=== PATIENT | male | born 1965 | race Caucasian/White ===

== ENCOUNTER 2021-12-04 14:56 | Outpatient (REF) | payer MEDICARE, MEDICAID, SELFPAY ==
--- NOTE | ~2021-12-04 | XR_ITS ---
EXAMINATION: XR HAND LEFT XR HAND RIGHT CLINICAL INFORMATION: 53-year-old male with other specified soft tissue disorders COMPARISON: Bone density scan of 07/09/2018 TECHNIQUE: Right hand, 3 views Left hand, 3 views FINDINGS: Bone density is diffusely decreased in this patient with history of osteoporosis. Bones have normal alignment in the left hand and wrist. No erosions, periostitis or focal soft tissue swelling. No abnormal soft tissue calcifications. There appears to be mild degenerative narrowing of articular cartilage space at distal interphalangeal joints. Findings in the right hand are similar to those observed on the left. Bones have normal alignment throughout the right hand and wrist. No erosions or periostitis. Mild articular cartilage space narrowing at multiple distal interphalangeal joints. No abnormal soft tissue calcifications within the right hand. XR/XR hand LT min 3V IMPRESSION: * Bone density appears to be diffusely decreased in this patient with history of osteoporosis. * No evidence of an inflammatory/erosive arthropathy in either hand or wrist. 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
--- NOTE | ~2021-12-04 | XR_ITS ---
EXAMINATION: XR HAND LEFT XR HAND RIGHT CLINICAL INFORMATION: 53-year-old male with other specified soft tissue disorders COMPARISON: Bone density scan of 07/09/2018 TECHNIQUE: Right hand, 3 views Left hand, 3 views FINDINGS: Bone density is diffusely decreased in this patient with history of osteoporosis. Bones have normal alignment in the left hand and wrist. No erosions, periostitis or focal soft tissue swelling. No abnormal soft tissue calcifications. There appears to be mild degenerative narrowing of articular cartilage space at distal interphalangeal joints. Findings in the right hand are similar to those observed on the left. Bones have normal alignment throughout the right hand and wrist. No erosions or periostitis. Mild articular cartilage space narrowing at multiple distal interphalangeal joints. No abnormal soft tissue calcifications within the right hand. XR/XR hand RT min 3V IMPRESSION: * Bone density appears to be diffusely decreased in this patient with history of osteoporosis. * No evidence of an inflammatory/erosive arthropathy in either hand or wrist. 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
== END 2021-12-04 14:57 | disposition home or self-care (01) ==
LOC: HO.XRAY 14:56
PROVIDERS: PCP Internal Medicine Geriatric Medicine; Visit Provider Internal Medicine Geriatric Medicine
DX: M79.89 Other specified soft tissue disorders (principal)
CPT/HCPCS: 73130

== ENCOUNTER 2023-04-15 13:47 | Outpatient (REF) | payer MEDICARE, MEDICAID, SELFPAY ==
[2023-04-15 16:13] LABS: Appearance Urine Cloudy; Color Urine Yellow; Glucose Urine UA Negative (Negative); Leukocyte Esterase Urine Moderate (2+) (Negative); Nitrite Urine Negative (Negative); PH 6.5 (5.0-9.0); Specific Gravity - Urine 1.015 (1.005-1.025); UMIC TRIGGER UACC YES; Urine Blood Large (3+) (Negative); Urine Ketones Negative (Negative); Urine Protein Trace mg/dL (Neg-Trace)
[2023-04-15 16:23] LABS: Bacteria Urine None Seen (None Seen); Calcium Oxalate Crystals Urine Present; RBC Urine >20 /HPF (0-2); Squamous Epithelial Cell Urine 0-2 /HPF (0-2); UACC Culture Trigger YES; WBC Urine >50 /HPF (0-5)
== END 2023-04-15 13:48 | disposition home or self-care (01) ==
LOC: HO.HHCL 13:47
PROVIDERS: Visit Provider Internal Medicine Geriatric Medicine
DX: E11.9 Type 2 diabetes mellitus without complications (principal); R53.81 Other malaise; R53.83 Other fatigue; N39.0 Urinary tract infection, site not specified; R31.9 Hematuria, unspecified
CPT/HCPCS: 81001; 87086; 87088; 87186

== ENCOUNTER 2023-07-17 11:05 | Outpatient (REF) | payer MEDICARE, MEDICAID, SELFPAY ==
[2023-07-17 13:23] LABS: MANUAL DIFF FLAG NO
[2023-07-17 13:29] LABS: Basophils Percent Auto 0.4 % (0-2); Eosinophils Absolute Auto 0.2 X10*3/uL (0.0-0.4); Eosinophils Percent Auto 1.8 % (0-4); Hematocrit 37.3 % (42.0-52.0); Hemoglobin 12.7 g/dl (14.0-18.0); Imm Gran Abs Auto 0.02 X10*3/uL (0.00-0.03); Imm Gran Pct Auto 0.2 % (0.0-0.4); Lymphocytes Percent Auto 24.7 % (20-40); Mean Corpuscular Hemoglobin 30.6 pg (27.0-33.0); Mean Corpuscular Volume 89.9 fL (80.0-98.0); Mean Platelet Volume 9.4 fL (9.4-12.4); Monocytes Absolute Auto 0.6 X10*3/uL (0.1-1.2); Monocytes Percent Auto 7.5 % (2-11); Neutrophils Absolute Auto 5.4 x10*3/uL (2.0-8.3); Neutrophils Percent Auto 65.4 % (45-73); Platelet Count 149 X10*3/uL (160-400); Red Blood Count 4.15 X10*6/uL (4.60-5.80); Red Cell Distribution Width 12.1 % (11.0-16.0); White Blood Count 8.3 X10*3/uL (4.8-10.8)
[2023-07-17 13:32] LABS: INTERNATIONAL NORM RATIO 2.4 (0.9-1.1); Prothrombin Time 29.3 SEC (11.1-13.3)
== END 2023-07-17 11:06 | disposition home or self-care (01) ==
LOC: HO.HHCL 11:05
PROVIDERS: Visit Provider Family Medicine
DX: S20.20XA Contusion of thorax, unspecified, initial encounter (principal)
CPT/HCPCS: 36415; 85025; 85610

== ENCOUNTER 2023-10-28 14:36 | Outpatient (REF) | payer MEDICARE, MEDICAID, SELFPAY ==
[2023-10-28 16:26] LABS: Prothrombin Time 36.4 SEC (11.1-13.3)
== END 2023-10-28 14:37 | disposition home or self-care (01) ==
LOC: HO.HHCL 14:36
PROVIDERS: Visit Provider Internal Medicine Geriatric Medicine
DX: Z79.01 Long term (current) use of anticoagulants (principal)
CPT/HCPCS: 36415; 85610

== ENCOUNTER 2023-12-17 10:42 | Outpatient (REF) | payer MEDICARE, MEDICAID, SELFPAY ==
[2023-12-17 11:32] LABS: MANUAL DIFF FLAG NO
[2023-12-17 11:41] LABS: Basophils Percent Auto 0.2 % (0-2); Eosinophils Absolute Auto 0.2 X10*3/uL (0.0-0.4); Eosinophils Percent Auto 4.7 % (0-4); Hematocrit 34.3 % (42.0-52.0); Hemoglobin 11.6 g/dl (14.0-18.0); Imm Gran Abs Auto 0.02 X10*3/uL (0.00-0.03); Imm Gran Pct Auto 0.4 % (0.0-0.4); Lymphocytes Absolute Auto 1.7 X10*3/uL (1.2-4.9); Lymphocytes Percent Auto 33.3 % (20-40); Mean Corpuscular HGB Conc 33.8 g/dl (31.0-36.0); Mean Corpuscular Hemoglobin 30.6 pg (27.0-33.0); Mean Corpuscular Volume 90.5 fL (80.0-98.0); Mean Platelet Volume 9.8 fL (9.4-12.4); Monocytes Absolute Auto 0.2 X10*3/uL (0.1-1.2); Monocytes Percent Auto 3.7 % (2-11); Neutrophils Absolute Auto 2.9 x10*3/uL (2.0-8.3); Neutrophils Percent Auto 57.7 % (45-73); Platelet Count 149 X10*3/uL (160-400); Red Blood Count 3.79 X10*6/uL (4.60-5.80); Red Cell Distribution Width 12.4 % (11.0-16.0); White Blood Count 5.1 X10*3/uL (4.8-10.8)
[2023-12-17 11:42] LABS: INTERNATIONAL NORM RATIO 1.1 (0.9-1.1); Prothrombin Time 12.9 SEC (11.1-13.3)
[2023-12-17 11:44] LABS: Partial Thromboplastin Time 28.8 SEC (26.0-36.8)
[2023-12-17 12:16] LABS: Alanine Aminotransferase 18 U/L (0-40); Albumin Level 3.4 g/dL (3.5-5.0); Alkaline Phosphatase 62 U/L (39-117); Anion Gap 13 (12-20); Aspartate Amino Transferase 21 U/L (5-37); Bilirubin Total 0.5 mg/dL (0.0-1.0); Blood Urea Nitrogen 8 mg/dL (9-16); Calcium 11.1 mg/dL (8.4-10.2); Carbon Dioxide 26 mmol/L (22-29); Chloride 101 mmol/L (96-108); Estimated Glomerular Filt Rate > 60; Glucose Random 99 mg/dL (60-115); Magnesium 1.6 mg/dL (1.6-2.6); Potassium 3.8 mmol/L (3.3-5.1); Sodium 136 mmol/L (135-145); Total Protein 7.2 g/dL (6.5-8.0)
== END 2023-12-17 10:43 | disposition home or self-care (01) ==
LOC: HO.HHCL 10:42
PROVIDERS: Visit Provider Emergency Medicine
DX: Z00.00 Encounter for general adult medical examination without abnormal findings (principal); D64.9 Anemia, unspecified; I62.9 Nontraumatic intracranial hemorrhage, unspecified; R79.1 Abnormal coagulation profile
CPT/HCPCS: 36415; 80053; 83735; 85025; 85610; 85730

== ENCOUNTER 2024-02-17 10:53 | Outpatient (REF) | payer MEDICARE, MEDICAID, SELFPAY | END 2024-02-17 10:54 | disposition home or self-care (01) | LOC: HO.HHCLNP 10:53 | PROVIDERS: Visit Provider Internal Medicine | DX: R35.0 Frequency of micturition (principal) | CPT/HCPCS: 87086 ==

== ENCOUNTER 2024-03-23 15:27 | Outpatient (REF) | payer MEDICARE, MEDICAID, SELFPAY ==
--- NOTE | ~2024-03-23 | XR_ITS ---
EXAMINATION: XR CHEST CLINICAL INFORMATION: Cough for several weeks COMPARISON: None available. TECHNIQUE: 4 views of the chest were obtained. FINDINGS: Heart and mediastinum within normal limits. No vascular congestion. Scattered atelectasis. No consolidation/air bronchograms or effusions. Bones are demineralized. Old bilateral rib fractures. XR/XR chest 2V IMPRESSION: Scattered atelectasis. No failure or consolidations.
== END 2024-03-23 15:28 | disposition home or self-care (01) ==
LOC: HO.HHCX 15:27
PROVIDERS: Visit Provider Internal Medicine
DX: R05.1 Acute cough (principal)
CPT/HCPCS: 71046

== ENCOUNTER 2024-03-31 10:35 | Outpatient (REF) | payer MEDICARE, MEDICAID, SELFPAY ==
--- NOTE | ~2024-03-31 | XR_ITS ---
EXAMINATION: XR CHEST CLINICAL INFORMATION: Acute cough, r/o pneumonia COMPARISON: Chest radiograph 03/23/2024 TECHNIQUE: 2 views of the chest FINDINGS: Lines and tubes: None. A few scattered streaky opacities for example in the left lung base which may reflect atelectasis. No pleural effusion. No pneumothorax. Normal cardiomediastinal silhouette. Remote right lateral seventh rib fracture deformity and left lateral ninth rib fracture deformity. XR/XR chest 2V IMPRESSION: A few scattered streaky opacities for example in the left lung base which may reflect atelectasis. Electronically signed by: Natalie Graham MD 04/02/2024 03:49 PM EDT
== END 2024-03-31 10:36 | disposition home or self-care (01) ==
LOC: HO.HHCX 10:35
PROVIDERS: Visit Provider Internal Medicine Geriatric Medicine
DX: R05.1 Acute cough (principal)
CPT/HCPCS: 71046

== ENCOUNTER 2024-04-19 11:16 | Outpatient (REF) | payer MEDICARE, MEDICAID, SELFPAY ==
--- NOTE | ~2024-04-19 | XR_ITS ---
EXAMINATION: XR chest 2V CLINICAL INFORMATION: > 1 month h/o cough COMPARISON: Chest radiograph 03/23/2024 TECHNIQUE: 2 views of the chest FINDINGS: Diffuse peribronchial vascular opacities may reflect edema or atypical infection. No pneumothorax. No pleural effusion. Unchanged cardiomediastinal silhouette. XR/XR chest 2V IMPRESSION: Diffuse peribronchial vascular opacities may reflect edema or atypical infection. Electronically signed by: Berna Augustine MD 05/04/2024 04:42 PM EDT
[2024-04-22 06:43] LABS: TS Negative Control Passed; TS Panel A 0; TS Panel B 2; TS Positive Control Passed; TSpotTB Negative (Negative)
== END 2024-04-19 11:17 | disposition home or self-care (01) ==
LOC: HO.HHCL 11:16
PROVIDERS: Visit Provider Emergency Medicine
DX: R05.2 Subacute cough (principal)
CPT/HCPCS: 36415; 71046; 86481

== ENCOUNTER 2024-04-26 11:03 | Outpatient (REF) | payer MEDICARE, MEDICAID, SELFPAY ==
[2024-04-26 14:11] LABS: Alanine Aminotransferase 17 U/L (0-40); Albumin Level 3.9 g/dL (3.5-5.0); Alkaline Phosphatase 68 U/L (39-117); Anion Gap 10 (12-20); Aspartate Amino Transferase 22 U/L (5-37); Bilirubin Total 0.5 mg/dL (0.0-1.0); Blood Urea Nitrogen 9 mg/dL (9-16); Calcium 11.5 mg/dL (8.4-10.2); Carbon Dioxide 32 mmol/L (22-29); Chloride 104 mmol/L (96-108); Cholesterol 119 mg/dL (<200); Estimated Glomerular Filt Rate > 60; Glucose Random 85 mg/dL (60-115); HDL Cholesterol 32 mg/dL (>40); LDL Cholesterol Calculated 64 mg/dL (<100); Potassium 3.8 mmol/L (3.3-5.1); Sodium 142 mmol/L (135-145); Total Protein 7.6 g/dL (6.5-8.0); Triglycerides 116 mg/dL (<150)
== END 2024-04-26 11:04 | disposition home or self-care (01) ==
LOC: HO.HHCL 11:03
PROVIDERS: Visit Provider Internal Medicine Geriatric Medicine
DX: E78.00 Pure hypercholesterolemia, unspecified (principal); E22.1 Hyperprolactinemia
CPT/HCPCS: 36415; 80053; 80061; 84146

== ENCOUNTER 2025-01-26 14:59 | Outpatient (REF) | payer MEDICARE, MEDICAID, SELFPAY ==
[2025-01-26 16:58] LABS: Creatinine Urine 89.72 mg/dL; Microalbum/Creatinine Ratio Ur 11.1 ug/mg cr (<30)
--- OUTSIDE RECORDS SUMMARY | 2025-01-26 17:16 | XMS_ITS | Encounter Summary ---
Author Organization [facility] Address [address] [place] [address] Care Team Providers Care Adjustment Clerk Name Role Phone Name, Arvind COLLINS Primary Care Provider [phone] Encounter Details Date Type Department Care Team (Late st Contact Info) Description 06/22/2024 Lab Requisition [facility] - Main Lab [address] [facility] [place] [phone] Jaylyn Hargrove MD [address] [place] [address] Chronic obstructive pulmonary disease, unspecified (CMS/HCC V24, CMS/HCC V28) Social History Tobacco Use Types Packs/Day Years Used Date Smoking Tobacco: Former Cigarettes Q uit: 08/11/2006 Smokeless Tobacco: Never Alcohol Use Standard Drinks/Week Comments No 0 (1 standard drink = 0.6 oz pur e alcohol) Sex and Gender Information Value Date Recorded Sex Assigned at Not on file Legal Sex Male 10:17 PM EST Gender Identity Not on file Sexual Orientation Not on file documented as of this encounter Plan of Treatment Not on file documented as of this encounter Procedures Procedure Name Priority Date/Time Associated Diagnosis Comments COMPLETE BLOOD COUNT Routine 06/22/2024 6:15 AM EST Chronic obstructive pulmonary disease, unspecified (CMS/HCC) HEMOGLOBIN A1C Routine 06/22/2024 6:15 AM EST Chronic obstructive pulmonary disease, unspecified (CMS/HCC) BASIC METABOLIC PANEL Routine 06/22/2024 6:15 AM EST Chronic obstructive pulmonary disease, unspecified (CMS/HCC) documented in this encounter Results * Hemoglobin A1c (06/22/2024 6:15 AM EST) Pathologist [facility] Hemoglobin A1C 5.7 % 06/22/2024 2:42 PM EST [facility] Mean Bld Glu Estim. 117 mg/dL 06/22/2024 2:42 PM EST [facility] Blood Venous blood specimen / Unknown Venipuncture / Unknown 06/22/2024 6:15 AM EST 06/22/2024 7:04 AM EST us Jaylyn Hargrove MD LAB BLOOD ORDERABLES Final Resu lt [facility] [address] [place] [address], * Basic metabolic panel (06/22/2024 6:15 AM EST) Pathologist [facility] Sodium 141 133 - 145 mmol/L LAB CHEMISTRY METHOD 06/22/2024 8:29 AM [facility] Potassium 4.2 3.5 - 5.5 mmol/L LAB CHEMISTRY METHOD 06/22/2024 8:29 AM [facility] Chloride 109 96 - 110 mmol/L LAB CHEMISTRY METHOD 06/22/2024 8:29 AM [facility] CO2 29 21 - 32 mmol/L LAB CHEMISTRY METHOD 06/22/2024 8:29 AM [facility] Anion Gap 3 3 - 11 LAB CHEMISTRY METHOD 06/22/2024 8:29 AM [facility] Glucose 90 70 - 100 mg/dL LAB CHEMISTRY METHOD 06/22/2024 8:29 AM [facility] BUN 11 5 - 25 mg/dL LAB CHEMISTRY METHOD 06/22/2024 8:29 AM [facility] Creatinine 0.71 0.70 - 1.30 mg/dL LAB CHEMISTRY METHOD 06/22/2024 8:29 AM [facility] eGFR 105 >=60 mL/min/1. 73m2 LAB CHEMISTRY METHOD 06/22/2024 8:29 AM [facility] Comment:Calculation based on the Chronic Kidney Disease Epidemiology Collaboration (CKD-EPI) equation refit without adjustment for race. BUN/Creatinine Ratio 15.5 LAB CHEMISTRY METHOD 06/22/2024 8:29 AM [facility] Calcium 10.1 8.5 - 10.5 mg/dL LAB CHEMISTRY METHOD 06/22/2024 8:29 AM [facility] Blood Venous blood specimen / Unknown Venipuncture / Unknown 06/22/2024 6:15 AM EST 06/22/2024 7:04 AM EST us Jaylyn Hargrove MD LAB BLOOD ORDERABLES Final Resu lt [facility] [address] [place] [address], * (ABNORMAL) Complete blood count (06/22/2024 6:15 AM EST) WBC 5.5 4.8 - 10.8 K/mcL LAB HEMETOLOGY METHOD 06/22/2024 11:12 AM [facility] RBC 4.20(L) 4.50 - 5.50 M/mcL LAB HEMETOLOGY METHOD 06/22/2024 11:12 AM [facility] Hemoglobin 13.3(L) 13.5 - 17.5 g/dL LAB HEMETOLOGY METHOD 06/22/2024 11:12 AM [facility] Hematocrit 39.0(L) 42.0 - 54.0 % LAB HEMETOLOGY METHOD 06/22/2024 11:12 AM EST [facility] MCV 94.0 79.0 - 98.0 FL LAB HEMETOLOGY METHOD 06/22/2024 11:12 AM [facility] MCH 32.0 27.0 - 32.0 pcg LAB HEMETOLOGY METHOD 06/22/2024 11:12 AM [facility] MCHC 34.1 32.0 - 37.0 g/dL LAB HEMETOLOGY METHOD 06/22/2024 11:12 AM [facility] RDW 12.1 11.0 - 15.0 % LAB HEMETOLOGY METHOD 06/22/2024 11:12 AM [facility] Platelets 130 130 - 400 K/mcL LAB HEMETOLOGY METHOD 06/22/2024 11:12 AM [facility] MPV 9.6 7.0 - 11.0 FL LAB HEMETOLOGY METHOD 06/22/2024 11:12 AM [facility] NRBC 0.0 <1.0 % LAB HEMETOLOGY METHOD 06/22/2024 11:12 AM [facility] NRBC Absolute 0.00 <0.10 K/mcL LAB HEMETOLOGY METHOD 06/22/2024 11:12 AM [facility] Blood Venous blood specimen / Unknown Venipuncture / Unknown 06/22/2024 6:15 AM EST 06/22/2024 7:04 AM EST us Jaylyn Hargrove MD LAB BLOOD ORDERABLES Final Resu lt [facility] [address] [place] [address], documented in this encounter Visit Diagnoses Diagnosis Chronic obstructive pulmonary disease, unspecified (CMS/HCC V24, CMS/HCC V28) documented in this encounter Care Teams Adjustment Clerk Relationship Specialty Start Date End Date Name, MD Arvind NPI: [id number] [place] [address] PCP - General Internal Medicine 05/01/22 documented as of this encounter
== END 2025-01-26 15:00 | disposition home or self-care (01) ==
LOC: HO.HHCL 14:59
PROVIDERS: PCP Internal Medicine Geriatric Medicine; Visit Provider Nurse Practitioner Family
DX: E11.9 Type 2 diabetes mellitus without complications (principal)
CPT/HCPCS: 36415; 82043; 82570

== ENCOUNTER 2025-02-07 10:37 | Outpatient (REF) | payer MEDICARE, MEDICAID, SELFPAY ==
--- OUTSIDE RECORDS SUMMARY | 2025-02-07 11:22 | XMS_ITS | Encounter Summary ---
Author Organization Address [address] [place] [address] Care Team Providers Care Time Study Analyst Name Role Phone Name, Arvind COLLINS Primary Care Provider [phone] Encounter Details Date Type Department Care Team (Late st Contact Info) Description 06/22/2024 Lab Requisition [facility] - Main Lab [address] [facility] [place] [phone] Jaylyn Hargrove MD [address] [place] [id number] Chronic obstructive pulmonary disease, unspecified (CMS/HCC V24, [...] Hemoglobin A1c (06/22/2024 6:15 AM EST) Pathologist [facility] Hemoglobin A1C 5.7 % 06/22/2024 2:42 PM EST [facility] Mean Bld Glu Estim. 117 mg/dL 06/22/2024 2:42 PM EST [facility] Blood Venous blood specimen / Unknown Venipuncture / Unknown 06/22/2024 6:15 AM EST 06/22/2024 7:04 AM EST us Jaylyn Hargrove MD LAB BLOOD ORDERABLES Final Resu lt [facility] [address] [place] [address], * Basic metabolic panel (06/22/2024 6:15 AM EST) Pathologist [facility] Sodium 141 133 - 145 mmol/L LAB CHEMISTRY METHOD 06/22/2024 8:29 AM [facility] Potassium 4.2 3.5 - 5.5 mmol/L LAB CHEMISTRY METHOD 06/22/2024 8:29 AM [facility] Chloride 109 96 - 110 mmol/L LAB CHEMISTRY METHOD 06/22/2024 8:29 AM [facility] CO2 29 21 - 32 mmol/L LAB CHEMISTRY METHOD 06/22/2024 8:29 AM [facility] Anion Gap 3 3 - 11 LAB CHEMISTRY METHOD 06/22/2024 8:29 AM [facility] Glucose 90 70 - 100 mg/dL LAB CHEMISTRY METHOD 06/22/2024 8:29 AM [facility] BUN 11 5 - 25 mg/dL LAB CHEMISTRY METHOD 06/22/2024 8:29 AM [facility] Creatinine 0.71 0.70 - 1.30 mg/dL LAB CHEMISTRY METHOD 06/22/2024 8:29 AM [facility] eGFR 105 >=60 mL/min/1. 73m2 LAB CHEMISTRY METHOD 06/22/2024 8:29 AM [facility] Comment:Calculation based on the Chronic Kidney Disease Epidemiology Collaboration (CKD-EPI) equation refit without adjustment for race. BUN/Creatinine Ratio 15.5 LAB CHEMISTRY METHOD 06/22/2024 8:29 AM [facility] Calcium 10.1 8.5 - 10.5 mg/dL LAB CHEMISTRY METHOD 06/22/2024 8:29 AM [facility] Blood Venous blood specimen / Unknown Venipuncture / Unknown 06/22/2024 6:15 AM EST 06/22/2024 7:04 AM EST us Jaylyn Hargrove MD LAB BLOOD ORDERABLES Final Resu lt [facility] [address] [place] [address], * (ABNORMAL) Complete blood count (06/22/2024 6:15 AM EST) WBC 5.5 4.8 - 10.8 K/mcL LAB HEMETOLOGY METHOD 06/22/2024 11:12 AM [facility] RBC 4.20(L) 4.50 - 5.50 M/mcL LAB HEMETOLOGY METHOD 06/22/2024 11:12 AM [facility] Hemoglobin 13.3(L) 13.5 - 17.5 g/dL LAB HEMETOLOGY METHOD 06/22/2024 11:12 AM [facility] Hematocrit 39.0(L) 42.0 - 54.0 % LAB HEMETOLOGY METHOD 06/22/2024 11:12 AM EST [facility] MCV 94.0 79.0 - 98.0 FL LAB HEMETOLOGY METHOD 06/22/2024 11:12 AM [facility] MCH 32.0 27.0 - 32.0 pcg LAB HEMETOLOGY METHOD 06/22/2024 11:12 AM [facility] MCHC 34.1 32.0 - 37.0 g/dL LAB HEMETOLOGY METHOD 06/22/2024 11:12 AM [facility] RDW 12.1 11.0 - 15.0 % LAB HEMETOLOGY METHOD 06/22/2024 11:12 AM [facility] Platelets 130 130 - 400 K/mcL LAB HEMETOLOGY METHOD 06/22/2024 11:12 AM [facility] MPV 9.6 7.0 - 11.0 FL LAB HEMETOLOGY METHOD 06/22/2024 11:12 AM [facility] NRBC 0.0 <1.0 % LAB HEMETOLOGY METHOD 06/22/2024 11:12 AM [facility] NRBC Absolute 0.00 <0.10 K/mcL LAB HEMETOLOGY METHOD 06/22/2024 11:12 AM [facility] Blood Venous blood specimen / Unknown Venipuncture / Unknown 06/22/2024 6:15 AM EST 06/22/2024 7:04 AM EST us Jaylyn Hargrove MD LAB BLOOD ORDERABLES Final Resu lt [facility] [address] [place] [address], documented in this encounter Visit Diagnoses Diagnosis Chronic obstructive pulmonary disease, unspecified (CMS/HCC V24, CMS/HCC V28) documented in this encounter Care Teams Time Study Analyst Relationship Specialty Start Date End Date Name, MD Arvind NPI: [id number] [place] [address] PCP - General Internal Medicine 05/01/22 documented as of this encounter
[2025-02-07 13:29] LABS: Hematocrit 36.6 % (42.0-52.0); Hemoglobin 12.7 g/dl (14.0-18.0); Mean Corpuscular HGB Conc 34.7 g/dl (31.0-36.0); Mean Corpuscular Hemoglobin 31.8 pg (27.0-33.0); Mean Corpuscular Volume 91.7 fL (80.0-98.0); Mean Platelet Volume 9.5 fL (9.4-12.4); Platelet Count 134 X10*3/uL (160-400); Red Blood Count 3.99 X10*6/uL (4.60-5.80); Red Cell Distribution Width 11.7 % (11.0-16.0); White Blood Count 6.5 X10*3/uL (4.8-10.8)
== END 2025-02-07 10:38 | disposition home or self-care (01) ==
LOC: HO.HHCL 10:37
PROVIDERS: PCP Internal Medicine Geriatric Medicine; Visit Provider Nurse Practitioner Family
DX: J30.2 Other seasonal allergic rhinitis (principal)
CPT/HCPCS: 36415; 85027

== ENCOUNTER 2025-02-23 11:47 | Outpatient (REF) | payer MEDICARE, MEDICAID, SELFPAY ==
--- OUTSIDE RECORDS SUMMARY | 2025-02-23 12:54 | XMS_ITS | Encounter Summary ---
Author Organization [facility] Address [address] [place] [address] Care Team Providers Care Interdisciplinary Professor Name Role Phone Name, Arvind COLLINS Primary Care Provider [phone] Encounter Details Date Type Department Care Team (Late st Contact Info) Description 06/22/2024 Lab Requisition [facility] - Main Lab [address] [facility] [place] [phone] Jaylyn Hargrove MD [address] [place] [address] Chronic obstructive pulmonary disease, unspecified (CMS/HCC V24, [...] Hemoglobin A1c (06/22/2024 6:15 AM EST) Pathologist [facility] Hemoglobin A1C 5.7 % 06/22/2024 2:42 PM EST [facility] Mean Bld Glu Estim. 117 mg/dL 06/22/2024 2:42 PM EST [facility] Blood Venous blood specimen / Unknown Venipuncture / Unknown 06/22/2024 6:15 AM EST 06/22/2024 7:04 AM EST us Jaylyn Hargrove MD LAB BLOOD ORDERABLES Final Resu lt [facility] [address] [place] [address], * Basic metabolic panel (06/22/2024 6:15 AM EST) Pathologist [facility] Sodium 141 133 - 145 mmol/L LAB [...] MD LAB BLOOD ORDERABLES Final Resu lt [facility] [address] [place] [address], * (ABNORMAL) Complete blood count (06/22/2024 6:15 [...] 11:12 AM [facility] MCV 94.0 79.0 - 98.0 FL LAB HEMETOLOGY METHOD 06/22/2024 11:12 AM EST [facility] MCH 32.0 27.0 - 32.0 [...] FL LAB HEMETOLOGY METHOD 06/22/2024 11:12 AM EST [facility] NRBC 0.0 <1.0 % LAB HEMETOLOGY METHOD 06/22/2024 11:12 AM [facility] NRBC Absolute 0.00 <0.10 K/mcL LAB HEMETOLOGY METHOD 06/22/2024 11:12 AM [facility] Blood Venous blood specimen / Unknown Venipuncture / Unknown 06/22/2024 6:15 AM EST 06/22/2024 7:04 AM EST us Jaylyn Hargrove MD LAB BLOOD ORDERABLES Final Resu lt [facility] [address] [place] [address], documented in this encounter Visit Diagnoses Diagnosis Chronic obstructive pulmonary disease, unspecified (CMS/HCC V24, CMS/HCC V28) documented in this encounter Care Teams Interdisciplinary Professor Relationship Specialty Start Date End Date Name, MD Arvind [address] [place] [address] PCP - General Internal Medicine 05/01/22 documented as of this encounter
--- OUTSIDE RECORDS SUMMARY | 2025-02-23 12:54 | XMS_ITS | Clinical Summary ---
Author Organization [facility] Facility Address [address] [place] [address] Care Team Providers Care Traffic Administrator Name Role Phone Name, Arvind COLLINS Primary Care Provider [phone] Social History Tobacco Use Types Packs/Day Years Used Date Smoking Tobacco: Never Assessed Sex and Gender Information Value Date Recorded Sex Assigned at Not on file Legal Sex Male 1:32 PM EDT Gender Identity Not on file Sexual Orientation Not on file Plan of Treatment Health Maintenance Due Date Last Done Comments Pneumococcal Vaccine: 50+ Years (1 of 2 - PCV) 983 Colorectal Cancer Screening: Annual FOBT 01/12/2013 Colorectal Cancer Screening: Colonoscopy 01/12/2013 Colorectal Cancer Screening: Sigmoidoscopy 01/12/2013 Hepatitis B Vaccine (1 of 3 - Risk 3-dose series) 11/2023 Diabetes: Hemoglobin A1C 04/16/2024 Diabetes: Ophthalmology Exam 04/16/2024 Diabetes: Pedal Pulse Checked 04/16/2024 Diabetes: Sensory Foot Exam 04/16/2024 Diabetes: Visual Foot Exam 04/16/2024 Influenza Vaccine (#1) 2025 Insurance Medicaid [place] Member Subscriber Plan / Payer (Ef fective 2024-Present) Name:Onesimo Almanzar Relation to Subscriber:Self Name:Onesimo Almanzar Payer ID:Not on file Group ID:Not on file Type:Not on file Address: [facility] [id number] [place] [address] U[employer] Medicare Care Teams Traffic Administrator Relationship Specialty Start Date End Date Name, MD Arvind [address] [place] [address] PCP - General Internal Medicine 04/15/24
[2025-02-23 13:48] LABS: MANUAL DIFF FLAG NO
[2025-02-23 13:56] LABS: Hematocrit 39.4 % (42.0-52.0); Hemoglobin 13.9 g/dl (14.0-18.0); Imm Gran Abs Auto 0.04 X10*3/uL (0.00-0.03); Imm Gran Pct Auto 0.4 % (0.0-0.4); Lymphocytes Absolute Auto 2.1 X10*3/uL (1.2-4.9); Mean Corpuscular HGB Conc 35.3 g/dl (31.0-36.0); Mean Corpuscular Hemoglobin 31.5 pg (27.0-33.0); Mean Corpuscular Volume 89.3 fL (80.0-98.0); NRBC Abs Auto 0.000 X10*3/uL (0.0-0.012); NRBC Pct Auto 0.0 /100WBC (0.0-0.2); Platelet Count 164 X10*3/uL (160-400); Red Blood Count 4.41 X10*6/uL (4.60-5.80); White Blood Count 10.2 X10*3/uL (4.8-10.8)
[2025-02-23 14:23] LABS: Anion Gap 10 (12-20); Blood Urea Nitrogen 12 mg/dL (9-16); Calcium 11.5 mg/dL (8.4-10.2); Carbon Dioxide 28 mmol/L (22-29); Chloride 105 mmol/L (96-108); Estimated Glomerular Filt Rate > 60; Potassium 4.0 mmol/L (3.3-5.1); Sodium 139 mmol/L (135-145)
== END 2025-02-23 11:48 | disposition home or self-care (01) ==
LOC: HO.HHCL 11:47
PROVIDERS: PCP Internal Medicine Geriatric Medicine; Visit Provider Emergency Medicine
DX: R19.7 Diarrhea, unspecified (principal)
CPT/HCPCS: 36415; 80048; 85025